=== PATIENT | male | born 1990 | race Caucasian/White ===

== ENCOUNTER 2019-12-22 07:24 | Emergency (ER) | payer MEDICAID, OTHER ==
[~2019-12-22] VITALS: Ht 180.3 cm; Wt 82.0 kg
[2019-12-22] MEDS ORDERED: TRAMADOL 50MG TABLET PO ONE (09:15)
[2019-12-22] MEDS ORDERED: KETOROLAC 30MG/ML VIAL IM ONE (09:15)
[2019-12-22 12:01] VITALS: BP 132/78
== END 2019-12-22 12:02 | disposition home or self-care (01) ==
LOC: ER 07:56
DX: S60.212A Contusion of left wrist, initial encounter (principal); S60.211A Contusion of right wrist, initial encounter; S46.819A Strain of other muscles, fascia and tendons at shoulder and upper arm level, unspecified arm, initial encounter; Y09 Assault by unspecified means; Y93.89 Activity, other specified; Y92.89 Other specified places as the place of occurrence of the external cause
CPT/HCPCS: 72070; 73100; 96372; 99284; J1885

== ENCOUNTER 2020-06-19 12:37 | Emergency (ER) | payer MEDICAID ==
[~2020-06-19] VITALS: Ht 177.8 cm; Wt 82.0 kg
[2020-06-19] MEDS ORDERED: KETOROLAC 30MG/ML VIAL IV STA (14:49)
[2020-06-19] MEDS ORDERED: SODIUM CHLORIDE 0.9% 1,000 ML IV ONE (15:00)
[2020-06-19 15:25] LABS: BASOPHILS % 0.8 % (0.0-2.0); EOSINOPHILS % 0.3 % (0.0-5.0); HEMATOCRIT. 45.4 % (42.0-52.0); HEMOGLOBIN. 15.1 g/dL (14.0-18.0); LYMPHOCYTES % 22.6 % (20.0-50.0); MEAN CORPUSCULAR HEMOGLOBIN 29.3 pg (28.0-32.0); MEAN CORPUSCULAR VOLUME 88.1 fL (80.0-94.0); MEAN PLATELET VOLUME 8.3 fl (7.4-10.4); MONOCYTES % 9.5 % (2.0-8.0); NEUTROPHILS % 66.8 % (40.0-76.0); PLATELET 238 x1000/uL (130-400); RED BLOOD CELL COUNT 5.15 mill/uL (4.7-6.1); RED CELL DISTRIBUTION WIDTH 12.9 % (11.6-14.6)
[2020-06-19 15:27] VITALS: BP 116/77
[2020-06-19 15:36] LABS: CHLORIDE 106 mEq/L (98-107)
[2020-06-19 15:39] LABS: ETHANOL BLOOD < 10 mg/dL
[2020-06-19 15:44] LABS: CREATINE KINASE 69 IU/L (39-308)
[2020-06-19 16:07] LABS: *AMPHETAMINES SCREEN URINE NEGATIVE (NEGATIVE); *BARBITURATES SCREEN URINE NEGATIVE (NEGATIVE); *BENZODIAZEPINES SCREEN URINE NEGATIVE (NEGATIVE); *COCAINE SCREEN URINE NEGATIVE (NEGATIVE); METHADONE URINE SCREEN NEGATIVE (NEGATIVE); OPIATES URINE SCREEN NEGATIVE (NEGATIVE)
[2020-06-19 16:08] LABS: CANNABINOID URINE SCREEN PRESUMTIVE POSITIVE (NEGATIVE); PHENCYCLIDINE URINE SCREEN NEGATIVE (NEGATIVE)
== END 2020-06-19 16:17 | disposition home or self-care (01) ==
LOC: ER 12:37
DX: M79.18 Myalgia, other site (principal); S49.92XA Unspecified injury of left shoulder and upper arm, initial encounter; R03.0 Elevated blood-pressure reading, without diagnosis of hypertension; W20.8XXA Other cause of strike by thrown, projected or falling object, initial encounter; Y93.89 Activity, other specified; Y92.89 Other specified places as the place of occurrence of the external cause; F43.9 Reaction to severe stress, unspecified
CPT/HCPCS: 36415; 71045; 73030; 80053; 80305; 80320; 82550; 84484; 85025; 96361; 96374; 99284; J1885; G0480

== ENCOUNTER 2020-10-15 06:54 | Emergency (ER) | payer MEDICAID ==
[~2020-10-15] VITALS: Ht 180.3 cm; Wt 82.0 kg
[2020-10-15 06:55] VITALS: BP 108/56
[2020-10-15] MEDS ORDERED: KETOROLAC 60MG/2ML VIAL IM ONE (07:45)
[2020-10-15] MEDS ORDERED: IBUP-2029 MT (09:50)
== END 2020-10-15 09:56 | disposition home or self-care (01) ==
LOC: ER 06:54
DX: S20.212A Contusion of left front wall of thorax, initial encounter (principal); Y04.2XXA Assault by strike against or bumped into by another person, initial encounter; Y93.89 Activity, other specified; Y92.89 Other specified places as the place of occurrence of the external cause; M79.602 Pain in left arm
CPT/HCPCS: 71101; 99283; J1885

== ENCOUNTER 2021-04-09 05:30 | Emergency (ER) | payer MEDICAID ==
[2020-10-15 06:55] VITALS: BP 125/85
[~2021-04-09 05:30] MED LIST: IBUP-2029 MT
[2021-04-09] MEDS ORDERED: ACETAMINOPHEN 325MG TABLET PO ONE (07:30)
[2021-04-09] MEDS: KETOROLAC 60MG/2ML VIAL IM ONE ×2 (07:39→07:41)
[2021-04-09] MEDS ORDERED: MELA10TA MT (07:48)
== END 2021-04-09 08:08 | disposition home or self-care (01) ==
LOC: ER 05:30
DX: R51.9 Headache, unspecified (principal); R07.89 Other chest pain; F41.9 Anxiety disorder, unspecified
CPT/HCPCS: 99282; J1885

== ENCOUNTER 2023-07-29 05:54 | Emergency (ER) | payer MEDICAID ==
[~2023-07-29] VITALS: Ht 177.8 cm; Wt 87.0 kg
[~2023-07-29 05:54] MED LIST changes: +MELATONIN10 MG MT
[2023-07-29 06:13] VITALS: BP 106/68; RESP 18; TEMP 98.5; O2SAT 98
[2023-07-29 06:18] VITALS: PULSE 84
[2023-07-29 06:59] LABS: BASOPHILS % 0.9 % (0.0-2.0); EOSINOPHILS % 0.8 % (0.0-5.0); HEMATOCRIT. 45.2 % (42.0-52.0); HEMOGLOBIN. 15.3 g/dL (14.0-18.0); LYMPHOCYTES % 23.1 % (20.0-50.0); MEAN CORPUSCULAR HEMOGLOBIN 29.8 pg (28.0-32.0); MEAN CORPUSCULAR HGB CONC 33.7 g/dL (31.0-37.0); MEAN CORPUSCULAR VOLUME 88.2 fL (80.0-94.0); MEAN PLATELET VOLUME 7.8 fl (7.4-10.4); MONOCYTES % 6.3 % (2.0-8.0); NEUTROPHILS % 68.9 % (40.0-76.0); PLATELET 349 x1000/uL (130-400); RED BLOOD CELL COUNT 5.13 mill/uL (4.7-6.1); RED CELL DISTRIBUTION WIDTH 13.8 % (11.6-14.6)
[2023-07-29 07:26] LABS: ALANINE AMINOTRANSFERASE 26 IU/L (10-49); ALBUMIN 4.7 g/dL (3.2-4.8); ASPARTATE AMINOTRANSFERASE 25 IU/L (<34); BILIRUBIN TOTAL 0.5 mg/dL (0.1-1.0); CALCIUM 9.4 mg/dL (8.7-10.4); CARBON DIOXIDE 29 mEq/L (21-32); CHLORIDE 106 mEq/L (98-107); GLUCOSE 101 mg/dL (70-105); POTASSIUM 4.2 mEq/L (3.5-5.1); PROTEIN TOTAL 8.2 g/dL (6.0-8.3); SODIUM 139 mEq/L (136-145); UREA NITROGEN BLOOD 9 mg/dL (9-23)
== END 2023-07-29 08:22 | disposition left against medical advice (07) ==
LOC: ER 06:13
DX: R10.9 Unspecified abdominal pain (principal); Z53.21 Procedure and treatment not carried out due to patient leaving prior to being seen by health care provider
CPT/HCPCS: 36415; 80053; 85025; 99281

== ENCOUNTER 2023-07-29 12:38 | Emergency (ER) | payer MEDICAID ==
[~2023-07-29] VITALS: Ht 175.3 cm; Wt 81.0 kg
[2023-07-29 12:52] VITALS: O2SAT 98
[2023-07-29] MEDS: KETOROLAC 60MG/2ML VIAL IM ONE (14:30)
[2023-07-29 14:45] VITALS: TEMP 98.4
[2023-07-29] MEDS: ACETAMINOPHEN 500MG TABLET PO ONE (14:45)
[2023-07-29 15:44] LABS: CLARITY URINE CLEAR (CLEAR); COLOR URINE YELLOW (YELLOW); GLUCOSE URINE NEGATIVE (NEGATIVE); KETONES URINE NEGATIVE (NEGATIVE); LEUKOCYTE ESTERASE URINE NEGATIVE (NEGATIVE); NITRITE URINE NEGATIVE (NEGATIVE); OCCULT BLOOD URINE NEGATIVE (NEGATIVE); PH URINE 5.5 (4.5-8.0); PROTEIN URINE NEGATIVE (NEGATIVE); SPECIFIC GRAVITY URINE 1.025 (1.005-1.030); UROBILINOGEN URINE 0.2 E.U./dL (0.2-1.0)
[2023-07-29 16:39] VITALS: BP 135/79; PULSE 82; RESP 16
== END 2023-07-29 17:14 | disposition home or self-care (01) ==
LOC: ER 12:38
DX: R10.9 Unspecified abdominal pain (principal)
CPT/HCPCS: 99285; 74176; 81003; 96372; J1885

== ENCOUNTER 2023-09-26 13:29 | Emergency (ER) | payer MEDICAID ==
[~2023-09-26] VITALS: Ht 177.8 cm; Wt 75.0 kg
[2023-09-26 13:42] VITALS: O2SAT 100
[2023-09-26] MEDS ORDERED: LIDOCAINE 5% PATCH TOP STA (15:00)
[2023-09-26] MEDS ORDERED: KETOROLAC 60MG/2ML VIAL IM ONE (15:00)
[2023-09-26] MEDS: METHOCARBAMOL 750MG TABLET PO SCH (15:00)
[2023-09-26] MEDS ORDERED: IBUP-2028 MT (16:46)
[2023-09-26] MEDS ORDERED: HYDR-4001 MT (16:46)
[2023-09-26] MEDS ORDERED: LIDO1ADH23 TP (16:46)
[2023-09-26] MEDS ORDERED: METH-653 MT (16:46)
[2023-09-26] MEDS: LIDOCAINE 5% PATCH TOP NR (17:00)
[2023-09-26] MEDS ORDERED: KETOROLAC 60MG/2ML VIAL IM NR (17:00)
[2023-09-26] MEDS: KETOROLAC 30MG/ML VIAL IM NR (17:12)
[2023-09-26 17:56] VITALS: BP 128/87; PULSE 86; RESP 16; TEMP 98.1
== END 2023-09-26 18:36 | disposition home or self-care (01) ==
LOC: ER 13:29
DX: M54.40 Lumbago with sciatica, unspecified side (principal); M54.17 Radiculopathy, lumbosacral region; Z98.890 Other specified postprocedural states
CPT/HCPCS: 99284; 72070; 72100; J1885

== ENCOUNTER 2024-06-27 15:55 | Emergency (ER) | payer SELFPAY ==
[~2024-06-27] VITALS: Ht 177.8 cm; Wt 87.0 kg
[~2024-06-27 15:55] MED LIST changes: +HYDR-4001 MT; +IBUP-2028 MT; +LIDO1ADH23 TP; +METH-653 MT
[2024-06-27 15:59] VITALS: O2SAT 98
[2024-06-27 16:14] VITALS: BP 108/71; PULSE 88; RESP 16; TEMP 36.6; O2SAT 100
== END 2024-06-27 17:10 | disposition left against medical advice (07) ==
LOC: ER 15:55
DX: S91.21 Laceration without foreign body of toe with damage to nail (principal); X58.XXXA Exposure to other specified factors, initial encounter; Y93.89 Activity, other specified; Y92.89 Other specified places as the place of occurrence of the external cause; Y99.8 Other external cause status; Z53.21 Procedure and treatment not carried out due to patient leaving prior to being seen by health care provider

== ENCOUNTER 2024-07-18 15:40 | Emergency (ER) | payer OTHER ==
[~2024-07-18] VITALS: Ht 175.3 cm; Wt 73.0 kg
[2024-07-18 15:42] VITALS: BP 102/72; PULSE 85; RESP 18; TEMP 36.8; O2SAT 98
[2024-07-18] MEDS: LORAZEPAM 1MG TABLET PO ONE (17:08)
[2024-07-18] MEDS: KETOROLAC 30MG/ML VIAL IM ONE (17:08)
[2024-07-18] MEDS: ACETAMINOPHEN 325MG TABLET PO ONE (17:09)
[2024-07-18] MEDS ORDERED: IBUP-2029 MT (17:29)
[2024-07-18] MEDS ORDERED: TOPUD PO (17:30)
[2024-07-18] MEDS ORDERED: CYCL10TA21 MT (17:31)
== END 2024-07-18 17:48 | disposition home or self-care (01) ==
LOC: ER 15:40
DX: M54.50 Low back pain, unspecified (principal); F41.1 Generalized anxiety disorder; V89.2XXA Person injured in unspecified motor-vehicle accident, traffic, initial encounter; Y93.89 Activity, other specified; Y92.89 Other specified places as the place of occurrence of the external cause; Y99.8 Other external cause status
CPT/HCPCS: 99283; 96372; J1885